=== PATIENT | female | born 1985 | race Caucasian/White ===

== ENCOUNTER 2021-09-18 16:11 | Emergency (ER) | payer SELFPAY ==
[~2021-09-18] VITALS: Ht 157.5 cm; Wt 54.5 kg
[~2021-09-18 16:11] MED LIST: MIRENA52 MG IU; PRENATAL1 TA1 PO; PRENATAL1 TA7 PO; ZYRTEC 10MG10 MG PO
[2021-09-18 16:59] VITALS: TEMP 98.4
[2021-09-18 17:12] LABS: COLLECTION METHOD CLEAN CATCH
[2021-09-18 17:58] LABS: PH 9 (5-8); URINE APPEARANCE Hazy (CLEAR/HAZY); URINE BACTERIA Rare /hpf (NONE SEEN); URINE BILIRUBIN Negative (NEGATIVE); URINE BLOOD 3+ (NEGATIVE); URINE COLOR Yellow (YELLOW); URINE GLUCOSE Negative (NEGATIVE); URINE KETONE Negative (NEGATIVE); URINE LEUKOCYTE ESTERASE Trace (NEGATIVE); URINE NITRATE Negative (NEGATIVE); URINE PROTEIN(semi-quant) 1+ (NEGATIVE); URINE RBC >50 /hpf (0-2); URINE UROBILINOGEN Negative (NEGATIVE)
[2021-09-18 18:06] LABS: ALBUMIN 4.3 gm/dL (3.5-5.0); BILIRUBIN,TOTAL 0.3 mg/dL (0.2-1.2); CREATININE, serum 0.78 mg/dL (0.57-1.11); POTASSIUM 3.7 mmol/L (3.5-4.5)
[2021-09-18 18:18] LABS: BASO # 0.1 K/mm3 (0.0-0.2); EOS # 0.1 K/mm3 (0.0-0.7); EOS % 1.1 % (0.0-4.0); GRAN # 7.2 K/mm3 (1.4-6.5); HEMATOCRIT 39.5 % (37.0-47.0); HEMOGLOBIN 13.2 g/dl (12.5-16.0); LYMPH # 1.4 K/mm3 (1.2-3.4); LYMPH % 15.1 % (20.0-51.0); MEAN CELL VOLUME 98 fl (80.0-100.0); MEAN CORPUSCULAR HEMOGLOBIN 33 pg (27-31); MEAN CORPUSCULAR HGB CONC 33 g/dl (33.0-37.0); MEAN PLATELET VOLUME 11.7 fl (7.4-10.4); MONO # 0.5 K/mm3 (0.1-0.6); MONO % 5.7 % (1.7-9.3); PLATELET COUNT 254 K/mm3 (130-400); RED BLOOD COUNT 4.05 M/mm3 (4.10-5.30); REDCELL DISTRIBUTION WIDTH-CV 13.1 % (11.5-14.5)
[2021-09-18] MEDS ORDERED: CEFTIN500 MG PO (18:35)
[2021-09-18 19:06] VITALS: BP 122/70; PULSE 73
== END 2021-09-18 19:06 | disposition home or self-care (01) ==
LOC: COL.ER 16:11
PROVIDERS: Emergency Medicine
DX: N39.0 Urinary tract infection, site not specified (principal); T43.4X5A Adverse effect of butyrophenone and thiothixene neuroleptics, initial encounter
CPT/HCPCS: J1200; J2060

== ENCOUNTER 2021-09-21 01:54 | Emergency (ER) | payer SELFPAY ==
[~2021-09-21] VITALS: Ht 157.5 cm; Wt 54.5 kg
[~2021-09-21 01:54] MED LIST changes: +CEFTIN500 MG PO
[2021-09-21 02:07] VITALS: TEMP 97.9
[2021-09-21 02:57] LABS: BASO # 0.1 K/mm3 (0.0-0.2); BASO % 1.2 % (0.0-2.0); EOS # 0.1 K/mm3 (0.0-0.7); EOS % 1.7 % (0.0-4.0); GRAN # 3.5 K/mm3 (1.4-6.5); HEMATOCRIT 41.9 % (37.0-47.0); HEMOGLOBIN 14.2 g/dl (12.5-16.0); LYMPH # 1.5 K/mm3 (1.2-3.4); LYMPH % 25.6 % (20.0-51.0); MEAN CELL VOLUME 95 fl (80.0-100.0); MEAN CORPUSCULAR HEMOGLOBIN 32 pg (27-31); MEAN CORPUSCULAR HGB CONC 34 g/dl (33.0-37.0); MEAN PLATELET VOLUME 11.3 fl (7.4-10.4); MONO # 0.7 K/mm3 (0.1-0.6); MONO % 11.3 % (1.7-9.3); PLATELET COUNT 231 K/mm3 (130-400); RED BLOOD COUNT 4.42 M/mm3 (4.10-5.30); REDCELL DISTRIBUTION WIDTH-CV 12.8 % (11.5-14.5)
[2021-09-21 03:53] LABS: ALANINE AMINOTRANSFERASE 33 U/L (0-55); ALBUMIN 4.6 gm/dL (3.5-5.0); ALKALINE PHOSPHATASE 55 U/L (40-150); ANION GAP 11 mmol/L (7-16); AST,SGOT 27 U/L (5-34); BILIRUBIN,TOTAL 0.3 mg/dL (0.2-1.2); BLOOD UREA NITROGEN 12 mg/dL (7-19); CALCIUM 9.9 mg/dL (8.4-10.2); CARBON DIOXIDE 27 mmol/L (22-29); CHLORIDE 101 mmol/L (98-107); GLUCOSE 109 mg/dL (70-99); POTASSIUM 4.2 mmol/L (3.5-4.5); SODIUM 139 mmol/L (136-145); TOTAL PROTEIN 7.5 gm/dL (6.2-8.1)
[2021-09-21 04:12] LABS: ALCOHOL(ethanol),MEDICAL < 10 mg/dL (0-10)
[2021-09-21 04:47] LABS: TRICYCLIC ANTIDEPRESS URINE NEGATIVE
[2021-09-21 05:55] VITALS: BP 136/80; PULSE 86
== END 2021-09-21 05:55 | disposition home or self-care (01) ==
LOC: COL.ER 01:54
PROVIDERS: Personal Emergency Response Attendant
DX: U07.1 COVID-19 (principal)

== ENCOUNTER 2024-04-29 14:45 | Emergency (ER) | payer SELFPAY ==
[~2024-04-29] VITALS: Ht 157.5 cm; Wt 55.9 kg
[2024-04-29] MEDS ORDERED: Iohexol 300 - 100 ML VIAL IV ONE (15:45)
[2024-04-29] MEDS ORDERED: NS 100 ML IV SCH (15:46)
[2024-04-29] MEDS ORDERED: BACTRIM DS 8001 TAB PO (16:31)
[2024-04-29 16:37] VITALS: BP 126/76; PULSE 70; TEMP 98.3
== END 2024-04-29 16:37 | disposition home or self-care (01) ==
LOC: COL.ER 14:45
DX: L03.213 Periorbital cellulitis (principal); Z79.899 Other long term (current) drug therapy; Z79.2 Long term (current) use of antibiotics; Z87.891 Personal history of nicotine dependence
CPT/HCPCS: Q9967